=== PATIENT | male | born 1980 | race American Indian/Alaskan Native ===

== ENCOUNTER 2018-03-24 15:36 | Emergency (ER) | payer OTHER ==
[2018-03-24 15:49] VITALS: BP 142/87
[2018-03-24] MEDS ORDERED: ULTRAM PO ONE (17:34)
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
--- NOTE | 2018-03-24 19:51 | XRay Report ---
FINAL REPORT PROCEDURE: XR SPINE CERVICAL 2-3V TECHNIQUE: Cervical spine radiographs, AP, lateral, and open-mouth odontoid views. HISTORY: Left-sided neck pain. COMPARISON: No prior studies are available for comparison. FINDINGS: Prevertebral soft tissues: Normal . Alignment: Normal. Vertebral body heights/Disk spaces: Mild C4-5 disc space narrowing. Tiny multilevel osteophytes. Fracture(s): None . Facets: Normal . Bone mineralization: Normal . IMPRESSION: Mild degenerative changes without radiographic evidence of acute abnormality.
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
== END 2018-03-24 20:06 | disposition home or self-care (01) ==
LOC: ED 15:36
DX: S16.1XXA Strain of muscle, fascia and tendon at neck level, initial encounter (principal); S39.012A Strain of muscle, fascia and tendon of lower back, initial encounter; R51 Headache; F17.200 Nicotine dependence, unspecified, uncomplicated; V89.2XXA Person injured in unspecified motor-vehicle accident, traffic, initial encounter; Y93.89 Activity, other specified; Y99.8 Other external cause status; Y92.410 Unspecified street and highway as the place of occurrence of the external cause
CPT/HCPCS: 72040; 72100; 99283

== ENCOUNTER 2020-12-29 12:02 | Emergency (ER) | payer OTHER ==
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
== END 2020-12-29 14:12 | disposition home or self-care (01) ==
LOC: ED 12:02
CPT/HCPCS: 99282

== ENCOUNTER 2021-09-28 12:27 | Emergency (ER) | payer SELFPAY ==
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
[2021-09-28 15:15] VITALS: BP 150/104
== END 2021-09-28 15:15 | disposition home or self-care (01) ==
LOC: ED 12:27
DX: K04.7 Periapical abscess without sinus (principal); F17.200 Nicotine dependence, unspecified, uncomplicated; Z72.89 Other problems related to lifestyle; Z79.899 Other long term (current) drug therapy
CPT/HCPCS: 99282

== ENCOUNTER 2021-10-15 14:38 | Emergency (ER) | payer SELFPAY ==
[2021-10-15 17:33] VITALS: BP 148/105
== END 2021-10-15 22:25 | disposition left against medical advice (07) ==
LOC: ED 14:38
DX: J02.9 Acute pharyngitis, unspecified (principal); Z53.21 Procedure and treatment not carried out due to patient leaving prior to being seen by health care provider

== ENCOUNTER 2021-10-16 09:35 | Emergency (ER) | payer SELFPAY ==
[2021-10-16] MEDS ORDERED: dexAMETHasone 4 MG/ML VIAL IM ONE (11:38)
[2021-10-16 11:39] VITALS: BP 141/104
[2021-10-16] MEDS ORDERED: IBUPROFEN 800 MG TAB PO ONE (11:40)
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
== END 2021-10-16 12:11 | disposition home or self-care (01) ==
LOC: ED 09:35
DX: J02.9 Acute pharyngitis, unspecified (principal); R03.0 Elevated blood-pressure reading, without diagnosis of hypertension; F17.200 Nicotine dependence, unspecified, uncomplicated; Z72.89 Other problems related to lifestyle; Z79.899 Other long term (current) drug therapy; Z98.890 Other specified postprocedural states
CPT/HCPCS: 99282